=== PATIENT | female | born 1990 | race Caucasian/White ===

== ENCOUNTER 2018-05-15 14:36 | Emergency (ER) | payer OTHER ==
[~2018-05-15] VITALS: Ht 165.1 cm; Wt 80.7 kg
[2018-05-15 14:47] VITALS: BP 119/77
--- NOTE | 2018-05-15 14:57 | NUR ---
PT AMBULATED TO BED 1 WITH MOTHER
--- NOTE | 2018-05-15 15:00 | NUR ---
27Y/F BIB FAMILY WITH C/O SORE THROAT AND FEVER X 4 DAYS. PT STATES IT HURTS TO SWALLOW AND FEELS LIKE SHE CANT BREATH WHEN SHE IS SLEEPING. UPON INSPECTION, TONSILS +3, MUCOSA RED AND SWOLLEN. PAIN 6/10, SHARP, COMES AND GOES. PT IS ABLE TO SWALLOW AT THIS TIME, VSS AT THIS TIME, BED DOWN, BEDRAIL UP X 1, ER MD AWARE AND NOTIFIED OF PT STATUS. HX: DENIES RX: DENIES
--- NOTE | 2018-05-15 16:02 | NUR ---
Patient being evaluated by physician at bedside.
[2018-05-15] MEDS ORDERED: KETOROLAC 60 MG/2 ML VIAL IM ONE (16:05)
[2018-05-15] MEDS ORDERED: PENICILLIN G BENZATHINE L-A 1.2 MU/2 ML SYR IM ONE (16:05)
[2018-05-15 16:40] VITALS: BP 117/72
--- NOTE | 2018-05-15 16:40 | NUR ---
Patient discharged with v/s stable. Written and verbal after care instructions given and explained. Patient alert, oriented and verbalized understanding of instructions. Ambulatory with steady gait. All questions addressed prior to discharge. ID band removed. Patient advised to follow up with PMD. Rx of motrin and prednisone given. Patient educated on indication of medication including possible reaction and side effects. Opportunity to ask questions provided and answered.
== END 2018-05-15 16:40 | disposition home or self-care (01) ==
LOC: MED 14:36
DX: J02.0 Streptococcal pharyngitis (principal)
CPT/HCPCS: 96372; 99283; J0561; J1885